=== PATIENT | female | born 1990 | race Caucasian/White ===

== ENCOUNTER 2018-04-22 17:16 | Emergency (ER) | payer OTHER ==
[~2018-04-22] VITALS: Ht 157.5 cm; Wt 48.1 kg
[2018-04-22 17:24] VITALS: BP_SYST 123
--- NOTE | 2018-04-22 17:29 | NUR ---
Pt placed to ER waiting room in stable condition.
--- NOTE | 2018-04-22 17:50 | NUR ---
Patient to ER bed 3 to gown for evaluation. Side rails up.
--- NOTE | 2018-04-22 17:55 | NUR ---
Patient to ER via triage with c/o left sided jaw pain whenattempting to fully open her mouth. No deformity noted, no known trauma or injury reported. Patient able to handle her own secretions. Patient is awake, alert and oriented in no acute distress, vital signs stable, respirations even and unlabored, skin warm and dry to touch. Awaiting evaluation by ER MD/PA, will continue to observe and assess.
--- NOTE | 2018-04-22 18:00 | NUR ---
Ish Mueller PA-C at bedside to evaluate patient.
[2018-04-22 18:45] VITALS: BP_SYST 120
--- NOTE | 2018-04-22 18:45 | NUR ---
Patient given written and verbal discharge instructions and verbalizes understanding. ER MD discussed with patient the results and treatment provided. Patient in stable condition. ID arm band removed. Rx of Robaxin, Ibuprofen given. Patient educated on pain management and to follow up with PMD. Pain Scale 0. Opportunity for questions provided and answered. Medication side effect fact sheet provided.
== END 2018-04-22 18:45 | disposition home or self-care (01) ==
LOC: SED 17:16
DX: R68.84 Jaw pain (principal)
CPT/HCPCS: 99283

== ENCOUNTER 2019-05-20 14:18 | Emergency (ER) | payer OTHER ==
[~2019-05-20] VITALS: Ht 157.5 cm; Wt 44.5 kg
[2019-05-20 14:18] VITALS: BP_SYST 121
[2019-05-20] MEDS ORDERED: LORazepam 2 MG/ML VIAL IVP ONE ×3 (14:30→15:15)
[2019-05-20] MEDS ORDERED: NACL 0.9% 1,000 ML IV ONE ×2 (14:30→14:45)
[2019-05-20 15:09] LABS: BASOPHILS % (AUTO) 0.3 % (0.0-2.0); EOSINOPHILS # (AUTO) 0.1 K/uL (0.0-0.4); EOSINOPHILS % (AUTO) 0.7 % (0.0-4.0); HEMATOCRIT 44.3 % (36-48); HEMOGLOBIN 14.9 g/dL (12.0-16.0); LYMPHOCYTES # (AUTO) 0.6 K/uL (1.0-5.5); LYMPHOCYTES % (AUTO) 7.6 % (20.5-51.5); MEAN CORPUSCULAR HEMOGLOBIN 31 pg (27-31); MEAN CORPUSCULAR HGB CONC 34 % (32-36); MEAN CORPUSCULAR VOLUME 92 fL (79.0-98.0); MONOCYTES # (AUTO) 0.4 K/uL (0.0-1.0); NEUTROPHILS # (AUTO) 7.2 K/uL (1.8-7.7); NEUTROPHILS % (AUTO) 86.4 % (40.0-70.0); PLATELET COUNT (AUTO) 191 K/uL (130-430); RED BLOOD CELL COUNT(AUTO) 4.81 MIL/uL (4.2-6.2); RED CELL DISTRIBUTION WIDTH 13.1 % (9.0-15.0); WHITE BLOOD COUNT (AUTO) 8.4 K/uL (4.8-10.8)
[2019-05-20 15:19] LABS: CALCIUM 9.4 mg/dL (8.4-11.0); CREATININE 0.6 mg/dL (0.55-1.30); POTASSIUM 3.3 mmol/L (3.5-5.1)
[2019-05-20 17:04] VITALS: BP_SYST 121
== END 2019-05-20 17:04 | disposition home or self-care (01) ==
LOC: SED 14:18
DX: J06.9 Acute upper respiratory infection, unspecified (principal)
CPT/HCPCS: 36415; 71045; 80053; 85025; 96374; 99284; J2060; J7030